=== PATIENT | male | born 1980 | race Caucasian/White ===

== ENCOUNTER 2017-01-22 18:39 | Emergency (ER) | payer OTHER ==
[2017-01-22 18:42] VITALS: BMI 25.1
[2017-01-22] MEDS ORDERED: Sodium Chloride 0.9% 1,000 ML IV STA (19:09)
--- NOTE | 2017-01-22 19:18 | ED PDOC ---
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 Patient states it is non- exertional and non-radiating and only lasts for a few seconds at a time. Denies shortness of breath. Patient also states he is constantly lightheaded, worse when standing. Denies recent travel. Denies any sig pmh other than right ear surgery as a child Time/Duration: 1 week Symptom Onset: Gradual Symptom Course: Unchanged Modifying Factors (Text): None Associated Symptoms (Text): None Past Medical History - Provider Review Nursing Documentation Reviewed: Yes - Infectious Disease Hx of Infectious Diseases: None - Psychiatric Hx Substance Use: No Family/Social History - Physician Review Nursing Documentation Reviewed: Yes Family/Social History: Unknown Family HX Smoking Status: Former Smoker Hx Alcohol Use: No Hx Substance Use: No Allergies/Home Meds Allergies/Adverse Reactions: Allergies No Known Allergies Allergy (Verified 01/22/17 18:48) Review of Systems - Physician Review All systems were reviewed & negative as marked: Yes - Review of Systems Respiratory: absent: SOB Cardiovascular: Chest Pain Neurological: Other (Lightheadedness (chronic)) Physical Exam Vital Signs Reviewed: Yes Vital Signs Temp Pulse Resp BP Pulse Ox 01/22/17 22:14 98.1 F 57 L 15 110/78 100 01/22/17 20:15 66 20 138/82 99 01/22/17 18:47 98.5 F 62 18 120/66 96 Temperature: Afebrile Blood Pressure: Normal Pulse: Regular Respiratory Rate: Normal Appearance: Positive for: Well-Appearing, Non-Toxic, Comfortable Pain Distress: None Mental Status: Positive for: Alert and Oriented X 3 - Systems Exam Head: Present: Atraumatic, Normocephalic Pupils: Present: PERRL Extroacular Muscles: Present: EOMI Conjunctiva: Present: Normal Mouth: Present: Moist Mucous Membranes Neck: Present: Normal Range of Motion Respiratory/Chest: Present: Clear to Auscultation, Good Air Exchange. No: Respiratory Distress, Accessory Muscle Use Cardiovascular: Present: Regular Rate and Rhythm, Normal S1, S2. No: Murmurs Abdomen: Present: Normal Bowel Sounds. No: Tenderness, Distention, Peritoneal Signs Back: Present: Normal Inspection Upper Extremity: Present: Normal Inspection. No: Cyanosis, Edema Lower Extremity: Present: Normal Inspection. No: Edema Neurological: Present: GCS=15, CN II-XII Intact, Motor Func Grossly Intact, Normal Sensory Function, Normal Cerebellar Funct, Gait Normal Skin: Present: Warm, Dry, Normal Color. No: Rashes Psychiatric: Present: Alert, Oriented x 3 Medical Decision Making ED Course and Treatment: EKG shows NSR at 63 BPM with normal axis, normal intervals, no acute ischemia with no prior for comparison. Interpreted by me. Chest x-ray read by me shows no acute findings 01/22/17 21:52 disc results w the pt. he is well-appearing, resting quietly in no distress. disc plan for rx, f/u, and rtr. - Lab Interpretations Lab Results: 01/22/17 18:50 01/22/17 18:50 Lab Results 01/22/17 18:50: Sodium 140, Potassium 3.5 L, Chloride 102, Carbon Dioxide 28, Anion Gap 14, BUN 17, Creatinine 0.7, Est GFR ( Amer) > 60, Est GFR (Non- Af Amer) > 60, Random Glucose 109, Calcium 9.2, Total Bilirubin 0.5, AST 29, ALT 34, Alkaline Phosphatase 57, Troponin I < 0.01, Total Protein 8.1, Albumin 4.3, Globulin 3.7, Albumin/Globulin Ratio 1.2 01/22/17 18:50: D-Dimer, Quantitative 0.19 01/22/17 18:50: WBC 4.1 L, RBC 4.75, Hgb 13.8 L, Hct 39.6 L, MCV 83.4, MCH 29.1 , MCHC 34.8, RDW 13.0, Plt Count 188, MPV 10.2, Neutrophils % (Manual) 29 L, Lymphocytes % (Manual) 65 H, Atypical Lymphs % 1 H, Monocytes % (Manual) 2, Eosinophils % (Manual) 3 - RAD Interpretation Radiology Orders: 01/22/17 19:08 CHEST TWO VIEWS (PA/LAT) [RAD] Stat - EKG Interpretation Interpreted by ED Physician: Yes Type: 12 lead EKG - Medication Orders Current Medication Orders: Discontinued Medications Sodium Chloride (Sodium Chloride 0.9%) 1,000 mls @ 999 mls/hr IV .Q1H1M STA Stop: 01/22/17 20:09 Last Admin: 01/22/17 19:17 Dose: 999 mls/hr - Scribe Statement The provider has reviewed the documentation as recorded by the Michelle Durán Provider Scribe Attestation: All medical record entries made by the Michelle were at my direction and personally dictated by me. I have reviewed the chart and agree that the record accurately reflects my personal performance of the history, physical exam, medical decision making, and the department course for this patient. I have also personally directed, reviewed, and agree with the discharge instructions and disposition. Disposition/Present on Arrival - Present on Arrival Any Indicators Present on Arrival: No History of DVT/PE: No History of Uncontrolled Diabetes: No Urinary Catheter: No History of Decub. Ulcer: No History Surgical Site Infection Following: None - Disposition Have Diagnosis and Disposition been Completed?: Yes Diagnosis: Dizziness, Chest pain Disposition: HOME/ ROUTINE Disposition Time: 21:50 Condition: STABLE Discharge Instructions (ExitCare): Vertigo (ED), Lightheadedness (ED), Dizziness (ED), Chest Pain (ED) Additional Instructions: Please follow up with the clinic. Return to the ER for any worsening symptoms or for any other concerns. Prescriptions: Meclizine [Meclizine*] 25 mg PO Q8H PRN #20 tab PRN Reason: Dizziness Ref[place] [facility] [place] [facility] [place] - Follow up with primary
[2017-01-22 19:44] LABS: HEMATOCRIT 39.6 % (42.0-52.0); MEAN CELL VOLUME 83.4 fL (80.0-105.0); MEAN CORPUSCULAR HEMOGLOBIN 29.1 pg (25.0-35.0); MEAN CORPUSCULAR HGB CONC 34.8 g/dl (31.0-37.0); MEAN PLATELET VOLUME 10.2 fl (7.0-11.0); PLATELET COUNT 188 10^3/uL (120.0-450.0); WHITE BLOOD COUNT 4.1 10^3/ul (4.5-11.0)
[2017-01-22 19:45] LABS: ADD MANUAL DIFF? YES
[2017-01-22 19:51] LABS: ALB/GLOB RATIO 1.2 (1.1-1.8); ALKALINE PHOSPHATASE 57 U/L (38-133); ALT/SGPT 34 U/L (7-56); AST/SGOT 29 U/L (15-59); BILIRUBIN,TOTAL 0.5 mg/dL (0.2-1.3); BLOOD UREA NITROGEN 17 mg/dL (7-21); CALCIUM 9.2 mg/dL (8.4-10.5); CARBON DIOXIDE 28 mmol/L (21-33); CHLORIDE 102 mmol/L (98-107); GFR AFRICAN-AMERICAN > 60; GLUCOSE,RANDOM 109 mg/dL (70-110); POTASSIUM 3.5 mmol/L (3.6-5.0); SODIUM 140 mmol/L (132-148); TOTAL PROTEIN 8.1 g/dL (5.8-8.3)
[2017-01-22 20:05] LABS: TROPONIN I < 0.01 ng/mL
[2017-01-22 20:33] LABS: ATYPICAL LYMPHOCYTE 1 % (0.0-0.0); EOSINOPHIL 3 % (0.0-3.0); NEUTROPHIL 29 % (50.0-70.0)
[2017-01-22 22:15] VITALS: BP 110/78; PULSE 57; RESP 15; TEMP 98.1; O2SAT 100
--- NOTE | 2017-01-23 08:34 | RAD ---
HISTORY: cp COMPARISON: No prior. TECHNIQUE: Chest PA and lateral FINDINGS: LUNGS: No active pulmonary disease. PLEURA: No significant pleural effusion identified. No pneumothorax apparent. CARDIOVASCULAR: Normal. OSSEOUS STRUCTURES: No significant abnormalities. VISUALIZED UPPER ABDOMEN: Normal. OTHER FINDINGS: None. IMPRESSION: No active disease.
--- NOTE | 2017-01-23 20:08 | CARD ---
APPROVED REPORT EKG Measurement Heart [id number] <Conclusion> Normal sinus rhythm Normal ECG
== END 2017-01-22 22:18 | disposition home or self-care (01) ==
LOC: ED 18:39
DX: R42 Dizziness and giddiness (principal)
CPT/HCPCS: 71020; 80053; 84484; 85025; 85378; 93005; 96360; 99284; J7040

== ENCOUNTER 2017-04-20 11:08 | Emergency (ER) | payer OTHER ==
[2017-04-20 11:18] VITALS: BMI 27.6
[2017-04-20 11:23] VITALS: TEMP 98.6; O2SAT 98
[2017-04-20 12:11] VITALS: BP 133/79; PULSE 75; RESP 18
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
== END 2017-04-20 12:40 | disposition home or self-care (01) ==
LOC: ED 11:08
DX: A63.0 Anogenital (venereal) warts (principal)

== ENCOUNTER 2018-02-22 19:40 | Emergency (ER) | payer MEDICAID, OTHER ==
[2018-02-22 19:42] VITALS: BMI 27.6
[2018-02-22 19:56] VITALS: RESP 18; TEMP 97.8
[2018-02-22] MEDS ORDERED: Sodium Chloride 0.9% 1,000 ML IV STA (20:08)
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
[2018-02-22 20:39] LABS: BASO # 0.01 K/mm3 (0.0-2.0); BASO % 0.2 % (0.0-3.0); EOS % 0.6 % (1.5-5.0); GRAN # 2.05 (1.4-6.5); GRAN % 39.9 % (50.0-68.0); HEMOGLOBIN 14.3 g/dL (14.0-18.0); LYMPH # 2.7 (1.2-3.4); LYMPH % 52.9 % (22.0-35.0); MEAN CELL VOLUME 83.1 fl (80.0-105.0); MEAN CORPUSCULAR HEMOGLOBIN 29.2 pg (25.0-35.0); MEAN CORPUSCULAR HGB CONC 35.1 g/dl (31.0-37.0); MEAN PLATELET VOLUME 9.7 fl (7.0-11.0); MONO # 0.3 (0.1-0.6); MONO % 6.4 % (1.0-6.0); RBC 4.9 10^6/uL (3.5-6.1); RED CELL DISTRIBUTION WIDTH 12.4 % (11.5-14.5); WHITE BLOOD COUNT 5.1 10^3/ul (4.5-11.0)
[2018-02-22 20:52] LABS: ALB/GLOB RATIO 1.4 (1.1-1.8); ALBUMIN 4.7 g/dL (3.0-4.8); ALT/SGPT 35 U/L (7-56); AST/SGOT 36 U/L (17-59); BLOOD UREA NITROGEN 16 mg/dL (7-21); CALCIUM 9.3 mg/dL (8.4-10.5); GFR AFRICAN-AMERICAN > 60; GFR NON-AFRICAN AMERICAN > 60; LIPASE 168 U/L (23-300)
--- NOTE | 2018-02-22 23:20 | CT ---
EXAM: CT Abdomen and Pelvis Without Intravenous Contrast EXAM DATE/TIME: 02/22/2018 8:08 PM CLINICAL HISTORY: 37 years old, male; Pain; Abdominal pain; Acute; Additional info: Right flank pain TECHNIQUE: Axial computed tomography images of the abdomen and pelvis without intravenous contrast. All CT scans at this facility use one or more dose reduction techniques, viz.: automated exposure control; ma/kV adjustment per patient size (including targeted exams where dose is matched to indication; i.e. head); or iterative reconstruction technique. Coronal and sagittal reformatted images were created and reviewed. COMPARISON: No relevant prior studies available. FINDINGS: LUNG BASES: No significant abnormality seen. ABDOMEN: LIVER: No acute abnormality of the liver identified. GALLBLADDER AND BILE DUCTS: No CT evidence of acute cholecystitis. No evidence of significant biliary ductal dilatation. PANCREAS: Tiny amount of fluid in the right retroperitoneum. Subtle stranding of the fat in the right retroperitoneum, abutting the pancreatic head. Findings are suspicious for mild acute pancreatitis, involving the pancreatic head. No evidence of diffuse peripancreatic fluid or a focal peripancreatic fluid collection. No findings to suggest chronic pancreatitis. SPLEEN: No acute abnormality of the spleen identified. ADRENALS: No acute abnormality of the adrenal glands identified. KIDNEYS AND URETERS: No renal stones, hydronephrosis, or hydroureter seen. STOMACH AND BOWEL: No acute abnormality of the stomach, small bowel or colon identified. No evidence of bowel obstruction. PELVIS: APPENDIX: Appendix is seen, and is within normal limits in appearance. BLADDER: No acute abnormality of the bladder identified. REPRODUCTIVE: No acute abnormality of the reproductive organs is seen. ABDOMEN and PELVIS: INTRAPERITONEAL SPACE: No evidence of free intraperitoneal air or fluid. BONES/JOINTS: No acute fractures or other acute bony abnormality noted. SOFT TISSUES: No acute abnormality of the visualized soft tissues is seen. VASCULATURE: No evidence of abdominal aortic aneurysm. No evidence of periaortic hemorrhage. LYMPH NODES: No evidence of diffuse lymphadenopathy. IMPRESSION: - Subtle findings suspicious for mild acute pancreatitis. Recommend correlation with pancreatic enzyme values. - Otherwise, no evidence of significant acute process on this unenhanced exam. There is no evidence of nephrolithiasis or obstructive uropathy. - See above for remaining findings.
[2018-02-23 00:50] VITALS: BP 121/89; PULSE 70; O2SAT 100
== END 2018-02-23 00:30 | disposition home or self-care (01) ==
LOC: EDBD 19:40 → ED 19:40
DX: K59.00 Constipation, unspecified (principal); R10.9 Unspecified abdominal pain
CPT/HCPCS: 74176; 80053; 83690; 85025; 96361; 96374; 96375; 99283; J1885; J2405; J7040